=== PATIENT | female | born 1990 | race Caucasian/White ===

== ENCOUNTER 2019-10-21 09:54 | Emergency (ER) | payer SELFPAY ==
[~2019-10-21] VITALS: Ht 157.5 cm; Wt 71.8 kg
[2019-10-21 10:04] VITALS: TEMP 99.9
[2019-10-21 11:05] LABS: COLLECTION METHOD CLEAN CATCH
[2019-10-21 11:10] LABS: BASO # 0.1 (0.0-0.2); BASO % 0.6 % (0.0-2.0); EOS % 0.1 % (0-4.0); GRAN # 6.9 (1.4-6.5); HEMATOCRIT 43.3 % (37.0-47.0); HEMOGLOBIN 14.5 g/dl (12.5-16.0); LYMPH # 1.4 (1.2-3.4); LYMPH % 15.3 % (20.0-51.0); MEAN CELL VOLUME 96 fl (80.0-100.0); MEAN CORPUSCULAR HEMOGLOBIN 32 pg (27.0-31.0); MEAN CORPUSCULAR HGB CONC 34 g/dl (33.0-37.0); MEAN PLATELET VOLUME 8.7 fl (7.4-10.4); MONO # 0.7 (0.1-0.6); MONO % 7.7 % (1.7-9.3); PLATELET COUNT 392 K/mm3 (130-400); RED BLOOD COUNT 4.53 M/mm3 (4.10-5.30); REDCELL DISTRIBUTION WIDTH-CV 13.2 % (11.5-14.5)
[2019-10-21 11:15] LABS: PROTHROMBIN TIME 11.7 SECONDS (9.7-12.8)
[2019-10-21 11:24] LABS: TRICYCLIC ANTIDEPRESS URINE NEGATIVE
[2019-10-21 11:31] LABS: ALANINE AMINOTRANSFERASE 24 U/L (4-34); ALBUMIN 4.9 gm/dL (3.5-5.0); ALCOHOL(ethanol),MEDICAL 13 mg/dL; ALKALINE PHOSPHATASE 57 U/L (50-136); ANION GAP 14 mmol/L (7-16); AST,SGOT 56 U/L (15-37); BILIRUBIN,TOTAL 0.7 mg/dL (0.0-1.0); BLOOD UREA NITROGEN 8 mg/dL (7-17); CALCIUM 9.9 mg/dL (8.4-10.2); CARBON DIOXIDE 23 mmol/L (22-30); CHLORIDE 101 mmol/L (98-107); CREATININE, serum 0.74 (0.52-1.25); GLUCOSE 82 mg/dL (74-106); POTASSIUM 3.7 mmol/L (3.4-5.0); SODIUM 138 mmol/L (137-145); TOTAL PROTEIN 8.4 gm/dL (6.4-8.2)
[2019-10-21 11:36] LABS: ACETAMINOPHEN < 10 ug/mL (10-30); MUCOUS Present /lpf; PH 6 (5-8); SALICYLATE < 1.0 mg/dL; SQUAMOUS EPITHELIAL 0-2 /hpf; URINE APPEARANCE Clear; URINE BACTERIA Rare /hpf; URINE BILIRUBIN Negative (NEGATIVE); URINE BLOOD 2+ (NEGATIVE); URINE COLOR Yellow; URINE GLUCOSE Negative (NEGATIVE); URINE KETONE 1+ (NEGATIVE); URINE LEUKOCYTE ESTERASE Negative (NEGATIVE); URINE NITRATE Negative (NEGATIVE); URINE PROTEIN(semi-quant) Negative (NEGATIVE); URINE UROBILINOGEN Negative (NEGATIVE)
[2019-10-21] MEDS ORDERED: LIBRIUM 25M25 MG/CAP PO (12:17)
--- NOTE | 2019-10-21 13:42 | NUR ---
SW received call from ER nurse about Patients visit to the ER. PEr information provided, patients Ex-boyfriend had committed suicide 3 days prior. patient had attempted to receive assistance from [facility], however had been consuming alcohol, and was referred to the ER. PRESTON met with patient at her bedside with her mother Princess [phone] present. SW received verbal permission from patient that her mother may be present during the interview. SW provided support as patient discussed her previous alcohol use, and relationship that she described as "toxic." Patients mother discussed patients history, and her own relationship with patients father who has attempted suicide multiple times as well. SW discussed options and provided resources, including [place] [facility] information, and treatment and support resources. Patient indicated that she still wished to go to the crisis center. She currently denied suicidal thoughts or thoughts of harming herself or others. PRESTON did call the [facility] center, and contacted patients nurse to coordinate care, however nurse informed PRESTON that [facility] services was in interviewing the patient.
[2019-10-21 14:00] VITALS: BP 128/84; PULSE 108
--- NOTE | 2019-10-24 09:18 | NUR ---
PRESTON attempted contacted the patient's mother for a follow-up, left message. PRESTON contacted the patient. She reports is currently at [facility] and getting better. There are no additional needs at this time.
== END 2019-10-21 14:06 | disposition home or self-care (01) ==
LOC: COL.ER 09:54
PROVIDERS: Emergency Medicine
DX: F32.9 Major depressive disorder, single episode, unspecified (principal); F10.239 Alcohol dependence with withdrawal, unspecified; R45.851 Suicidal ideations; F17.210 Nicotine dependence, cigarettes, uncomplicated; Z90.89 Acquired absence of other organs
CPT/HCPCS: J2405; J3360; J7030

== ENCOUNTER 2020-05-03 12:41 | Emergency (ER) | payer SELFPAY ==
[~2020-05-03] VITALS: Ht 157.5 cm; Wt 72.7 kg
[~2020-05-03 12:41] MED LIST: LIBRIUM 25M25 MG/CAP PO
[2020-05-03 12:47] VITALS: TEMP 97.5
[2020-05-03 13:28] LABS: HEMOGLOBIN 11.6 g/dl (12.5-16.0); MEAN CELL VOLUME 93 fl (80.0-100.0); MEAN CORPUSCULAR HEMOGLOBIN 30 pg (27.0-31.0); MEAN CORPUSCULAR HGB CONC 33 g/dl (33.0-37.0); MEAN PLATELET VOLUME 8.7 fl (7.4-10.4); PLATELET COUNT 343 K/mm3 (130-400); RED BLOOD COUNT 3.86 M/mm3 (4.10-5.30)
[2020-05-03 13:29] LABS: HEMATOCRIT 35.7 % (37.0-47.0)
[2020-05-03 13:41] LABS: ALBUMIN 4.4 gm/dL (3.5-5.0); BILIRUBIN,TOTAL 0.5 mg/dL (0.0-1.0); CALCIUM 9.2 mg/dL (8.4-10.2); CREATININE, serum 0.85 (0.52-1.25); POTASSIUM 4.1 mmol/L (3.4-5.0); TOTAL PROTEIN 7.6 gm/dL (6.4-8.2)
[2020-05-03 18:55] VITALS: BP 121/70; PULSE 68
== END 2020-05-03 18:55 | disposition home or self-care (01) ==
LOC: COL.ER 12:41
PROVIDERS: Emergency Medicine
DX: O00.90 Unspecified ectopic pregnancy without intrauterine pregnancy (principal); Z3A.00 Weeks of gestation of pregnancy not specified
CPT/HCPCS: J2791; J9260